=== PATIENT | male | born 1955 | race Caucasian/White ===

== ENCOUNTER 2017-04-09 19:03 | Observation (INO) | payer MEDICARE, OTHER ==
[2017-04-09] MEDS ORDERED: Sodium Chloride 0.9% 1,000 ML IV ONE (19:12)
--- NOTE | 2017-04-09 19:25 | EDM.PDOC ---
ED HPI GENERAL MEDICAL PROBLEM - General Chief Complaint: General Stated Complaint: PT HAS DIFFICULTY BREATHING AND PAIN ON RT SIDE Time Seen by Provider: 04/09/17 19:08 - History of Present Illness INITIAL COMMENTS - FREE TEXT/NARRATIVE: HISTORY AND PHYSICAL: History of present illness: Patient is a 61-year-old white male with history of hypertension presents with a concern of right-sided abdominal pain this is more upper abdominal pain and started today he denies chest pain nausea vomiting he does equivocate regarding some shortness of breath he denies drug or alcohol abuse denies trauma denies urinary symptoms denies no gallbladder ulcer or pancreatic disease Review of systems: As per history of present illness and below otherwise all systems reviewed and negative. Past medical history: As per history of present illness and as reviewed below otherwise noncontributory. Surgical history: As per history of present illness and as reviewed below otherwise noncontributory. Social history: No reported history of drug or alcohol abuse. Family history: As per history of present illness and as reviewed below otherwise noncontributory. Physical exam: HEENT: Atraumatic, normocephalic, pupils reactive, negative for conjunctival pallor or scleral icterus, mucous membranes moist, throat clear, neck supple, nontender, trachea midline. Lungs: Clear to auscultation, breath sounds equal bilaterally, chest nontender. Heart: S1S2, regular, negative for clicks, rubs, or JVD. Abdomen: Soft, protuberant nondistended, mild upper abdominal tenderness nonlocalized no rebound no guarding. Negative for masses or hepatosplenomegaly. Negative for costovertebral tenderness. Pelvis: Stable nontender. Genitourinary: Deferred. Rectal: Deferred. Extremities: Atraumatic, negative for cords or calf pain. Neurovascular unremarkable. Neuro: Awake, alert, oriented. Cranial nerves II through XII unremarkable. Cerebellum unremarkable. Motor and sensory unremarkable throughout. Exam nonfocal. Diagnostics: CBC CMP PT/INR troponin amylase lipase chest x-ray EKG CT abdomen and pelvis Therapeutics: Normal saline 1 L bolus O2 monitor Impression: #1 abdominal pain #2 hypertension Definitive disposition and diagnosis as appropriate pending reevaluation and review of above. right side rib Pain Score (Numeric/FACES): 10 - Related Data Allergies Allergy/AdvReac Type Severity Reaction Status Date / Time No Known Allergies Allergy Verified 04/09/17 19:05 Home Meds: Home Meds Aspirin [Lo-Dose Aspirin EC] 81 mg PO DAILY 04/09/17 [History] Gemfibrozil [Lopid] 600 mg PO DAILY 04/09/17 [History] Mycophenolate Mofetil 500 mg PO BID 04/09/17 [History] Nadolol [Corgard] 20 mg PO DAILY 04/09/17 [History] Sertraline [Zoloft] 200 mg PO DAILY 04/09/17 [History] Tacrolimus [Prograf] 1 mg PO BID 04/09/17 [History] buPROPion [Wellbutrin] 150 mg PO BID 04/09/17 [History] traZODone HCl [Trazodone HCl] 200 mg PO BEDTIME 04/09/17 [History] ED ROS GENERAL - Review of Systems Review Of Systems: ROS reveals no pertinent complaints other than HPI. ED EXAM, GENERAL - Physical Exam Exam: See Below (See dictation) Course - Vital Signs Last Recorded V/S: Last Vital Signs Temp 36.6 C 04/10/17 00:00 Pulse 85 04/10/17 00:00 Resp 20 04/10/17 00:00 BP 133/64 04/10/17 00:00 Pulse Ox 95 04/10/17 00:00 - Orders/Labs/Meds Orders: Active Orders 24 hr Category Date Time Status Patient Status [ADT] Stat ADT 04/09/17 20:32 Active Pulse Oximetry [RC] ASDIRECTED Care 04/09/17 19:11 Active Abdomen Pelvis wo Cont [CT] Stat Exams 04/09/17 19:12 Taken Chest 2V [CR] Stat Exams 04/09/17 19:12 Taken CULTURE BLOOD [BC] Stat Lab 04/09/17 20:40 Received CULTURE BLOOD [BC] Stat Lab 04/09/17 20:46 Received Blood Culture x2 Reflex Set [OM.PC] Stat Oth 04/09/17 20:27 Ordered Medication Orders Acetaminophen (Tylenol) 650 mg PO Q4H PRN PRN Reason: Pain (Mild 1-3)/fever Hydrocodone Bitart/Acetaminophen (Eldred 325-5 Mg) 2 tab PO Q4H PRN PRN Reason: Pain (moderate 4-6) Albuterol/Ipratropium (Duoneb 3.0-0.5 Mg/3 Ml) 3 ml NEB Q4HRRT PRN PRN Reason: Shortness Of Breath/wheezing Aspirin (Halfprin) 81 mg PO DAILY [facility] Bupropion HCl (Wellbutrin) 150 mg PO BID [facility] Enoxaparin Sodium (Lovenox) 40 mg SUBCUT DAILY [facility] Gemfibrozil (Lopid) 600 mg PO DAILY [facility] Hydromorphone HCl (Dilaudid) 0.5 mg IVPUSH Q2H PRN PRN Reason: Pain (severe 7-10) Sodium Chloride (Normal Saline) 250 mls @ 999 mls/hr IV ASDIRECTED [facility] Last Admin: 04/09/17 21:27 Dose: 999 mls/hr Ibuprofen (Motrin) 600 mg PO Q6H PRN PRN Reason: Pain (mild 1-3) Mycophenolate Mofetil (Cellcept) 500 mg PO BIDAC [facility] Nadolol (Naldol) 20 mg PO DAILY [facility] Nicotine (Habitrol) 14 mg TRDERM DAILY [facility] Ondansetron HCl (Zofran Odt) 4 mg PO Q6H PRN PRN Reason: nausea, able to take PO Ondansetron HCl (Zofran) 4 mg IVPUSH Q6H PRN PRN Reason: Nausea/Vomiting Polyethylene Glycol (Miralax) 17 gm PO DAILY PRN PRN Reason: Constipation Promethazine HCl (Phenergan) 25 mg PO Q6H PRN PRN Reason: nausea, able to take PO Sertraline HCl (Zoloft) 200 mg PO DAILY [facility] Tacrolimus (Prograf) 1 mg PO BID [facility] Temazepam (Restoril) 15 mg PO BEDTIME PRN PRN Reason: Sleep Trazodone HCl (Trazodone) 200 mg PO BEDTIME [facility] Labs: Laboratory Tests 04/09/17 04/09/17 04/09/17 Range/Units 19:30 19:30 19:30 WBC 18.84 H (4.0-11.0) K/uL RBC 5.46 (4.50-5.90) M/uL Hgb 16.2 (13.0-17.0) g/dL Hct 44.7 (38.0-50.0) % MCV 81.9 (80.0-98.0) fL MCH 29.7 (27.0-32.0) pg MCHC 36.2 (31.0-37.0) g/dL RDW Std Deviation 43.8 (28.0-62.0) fl RDW Coeff of Zara 15 (11.0-15.0) % Plt Count 166 (150-400) K/uL MPV 9.20 (7.40-12.00) fL Neut % (Auto) 85.1 H (48.0-80.0) % Lymph % (Auto) 3.9 L (16.0-40.0) % [place] % (Auto) 10.5 (0.0-15.0) % Eos % (Auto) 0.4 (0.0-7.0) % Baso % (Auto) 0.1 (0.0-1.5) % Neut # (Auto) 16.0 H (1.4-5.7) K/uL Lymph # (Auto) 0.7 (0.6-2.4) K/uL [place] # (Auto) 2.0 H (0.0-0.8) K/uL Eos # (Auto) 0.1 (0.0-0.7) K/uL Baso # (Auto) 0.0 (0.0-0.1) K/uL Nucleated RBC % 0.0 /100WBC Nucleated RBCs # 0 K/uL INR 1.21 H (0.86-1.11) Lactate (0.20-2.00) mmol/L Sodium 134 L (136-146) mmol/L Potassium 4.4 (3.5-5.1) mmol/L Chloride 101 (98-110) mmol/L Carbon Dioxide 20 L (21-31) mmol/L BUN 15 (6.0-23.0) mg/dL Creatinine 1.2 (0.6-1.5) mg/dL Est Cr Clr Drug Dosing 57.66 mL/min Estimated GFR (MDRD) > 60.0 ml/min Glucose 121 H (60-110) mg/dL Calcium 9.5 (8.8-10.8) mg/dL Total Bilirubin 1.3 (0.1-1.5) mg/dL AST 34 (5-40) IU/L ALT 20 (8-54) IU/L Alkaline Phosphatase 143 (40-150) Troponin I (0.0-0.29) NG/ML Total Protein 8.3 H (6.0-8.0) g/dL Albumin 3.7 (3.5-5.0) g/dL Globulin 4.6 H (2.0-3.5) g/dL Albumin/Globulin Ratio 0.8 L (1.3-2.8) Amylase 25 (10-90) U/L Lipase 15 (7-80) U/L Urine Color Urine Appearance Urine pH (5.0-8.0) Ur Specific [place] (1.001-1.035) Urine Protein (NEGATIVE) mg/dL Urine Glucose (UA) (NEGATIVE) mg/dL Urine Ketones (NEGATIVE) mg/dL Urine Occult Blood (NEGATIVE) Urine Nitrite (NEGATIVE) Urine Bilirubin (NEGATIVE) Urine Ictotest Urine Urobilinogen (<2.0) EU/dL Ur Leukocyte Esterase (NEGATIVE) Urine RBC (0-2/HPF) Urine WBC (0-5/HPF) Ur Epithelial Cells (NONE-FEW) Urine Bacteria (NEGATIVE) Hyaline Casts (0-2/LPF) Urine Mucus (NONE-MOD) Urine Opiates Screen (NEGATIVE) Ur Oxycodone Screen (NEGATIVE) Urine Methadone Screen (NEGATIVE) Ur Barbiturates Screen (NEGATIVE) Ur Phencyclidine Scrn (NEGATIVE) Ur Amphetamine Screen (NEGATIVE) U Methamphetamines Scrn (NEGATIVE) U Benzodiazepines Scrn (NEGATIVE) U Cocaine Metab Screen (NEGATIVE) U Marijuana (THC) Screen (NEGATIVE) 04/09/17 04/09/17 04/09/17 Range/Units 19:30 19:30 20:05 WBC (4.0-11.0) K/uL RBC (4.50-5.90) M/uL Hgb (13.0-17.0) g/dL Hct (38.0-50.0) % MCV (80.0-98.0) fL MCH (27.0-32.0) pg MCHC (31.0-37.0) g/dL RDW Std Deviation (28.0-62.0) fl RDW Coeff of Zara (11.0-15.0) % Plt Count (150-400) K/uL MPV (7.40-12.00) fL Neut % (Auto) (48.0-80.0) % Lymph % (Auto) (16.0-40.0) % [place] % (Auto) (0.0-15.0) % Eos % (Auto) (0.0-7.0) % Baso % (Auto) (0.0-1.5) % Neut # (Auto) (1.4-5.7) K/uL Lymph # (Auto) (0.6-2.4) K/uL [place] # (Auto) (0.0-0.8) K/uL Eos # (Auto) (0.0-0.7) K/uL Baso # (Auto) (0.0-0.1) K/uL Nucleated RBC % /100WBC Nucleated RBCs # K/uL INR (0.86-1.11) Lactate 1.3 (0.20-2.00) mmol/L Sodium (136-146) mmol/L Potassium (3.5-5.1) mmol/L Chloride (98-110) mmol/L Carbon Dioxide (21-31) mmol/L BUN (6.0-23.0) mg/dL Creatinine (0.6-1.5) mg/dL Est Cr Clr Drug Dosing mL/min Estimated GFR (MDRD) ml/min Glucose (60-110) mg/dL Calcium (8.8-10.8) mg/dL Total Bilirubin (0.1-1.5) mg/dL AST (5-40) IU/L ALT (8-54) IU/L Alkaline Phosphatase (40-150) Troponin I < 0.10 (0.0-0.29) NG/ML Total Protein (6.0-8.0) g/dL Albumin (3.5-5.0) g/dL Globulin (2.0-3.5) g/dL Albumin/Globulin Ratio (1.3-2.8) Amylase (10-90) U/L Lipase (7-80) U/L Urine Color DARK YELLOW Urine Appearance CLEAR Urine pH 6.0 (5.0-8.0) Ur Specific [place] 1.025 (1.001-1.035) Urine Protein 100 (NEGATIVE) mg/dL Urine Glucose (UA) 100 H (NEGATIVE) mg/dL Urine Ketones NEGATIVE (NEGATIVE) mg/dL Urine Occult Blood TRACE-INTACT (NEGATIVE) Urine Nitrite NEGATIVE (NEGATIVE) Urine Bilirubin MODERATE H (NEGATIVE) Urine Ictotest NEGATIVE Urine Urobilinogen >=8.0 H (<2.0) EU/dL Ur Leukocyte Esterase NEGATIVE (NEGATIVE) Urine RBC 0-2 (0-2/HPF) Urine WBC 4-6 (0-5/HPF) Ur Epithelial Cells MODERATE (NONE-FEW) Urine Bacteria FEW (NEGATIVE) Hyaline Casts 5-8 (0-2/LPF) Urine Mucus LIGHT (NONE-MOD) Urine Opiates Screen (NEGATIVE) Ur Oxycodone Screen (NEGATIVE) Urine Methadone Screen (NEGATIVE) Ur Barbiturates Screen (NEGATIVE) Ur Phencyclidine Scrn (NEGATIVE) Ur Amphetamine Screen (NEGATIVE) U Methamphetamines Scrn (NEGATIVE) U Benzodiazepines Scrn (NEGATIVE) U Cocaine Metab Screen (NEGATIVE) U Marijuana (THC) Screen (NEGATIVE) 04/09/17 Range/Units 20:05 WBC (4.0-11.0) K/uL RBC (4.50-5.90) M/uL Hgb (13.0-17.0) g/dL Hct (38.0-50.0) % MCV (80.0-98.0) fL MCH (27.0-32.0) pg MCHC (31.0-37.0) g/dL RDW Std Deviation (28.0-62.0) fl RDW Coeff of Zara (11.0-15.0) % Plt Count (150-400) K/uL MPV (7.40-12.00) fL Neut % (Auto) (48.0-80.0) % Lymph % (Auto) (16.0-40.0) % [place] % (Auto) (0.0-15.0) % Eos % (Auto) (0.0-7.0) % Baso % (Auto) (0.0-1.5) % Neut # (Auto) (1.4-5.7) K/uL Lymph # (Auto) (0.6-2.4) K/uL [place] # (Auto) (0.0-0.8) K/uL Eos # (Auto) (0.0-0.7) K/uL Baso # (Auto) (0.0-0.1) K/uL Nucleated RBC % /100WBC Nucleated RBCs # K/uL INR (0.86-1.11) Lactate (0.20-2.00) mmol/L Sodium (136-146) mmol/L Potassium (3.5-5.1) mmol/L Chloride (98-110) mmol/L Carbon Dioxide (21-31) mmol/L BUN (6.0-23.0) mg/dL Creatinine (0.6-1.5) mg/dL Est Cr Clr Drug Dosing mL/min Estimated GFR (MDRD) ml/min Glucose (60-110) mg/dL Calcium (8.8-10.8) mg/dL Total Bilirubin (0.1-1.5) mg/dL AST (5-40) IU/L ALT (8-54) IU/L Alkaline Phosphatase (40-150) Troponin I (0.0-0.29) NG/ML Total Protein (6.0-8.0) g/dL Albumin (3.5-5.0) g/dL Globulin (2.0-3.5) g/dL Albumin/Globulin Ratio (1.3-2.8) Amylase (10-90) U/L Lipase (7-80) U/L Urine Color Urine Appearance Urine pH (5.0-8.0) Ur Specific [place] (1.001-1.035) Urine Protein (NEGATIVE) mg/dL Urine Glucose (UA) (NEGATIVE) mg/dL Urine Ketones (NEGATIVE) mg/dL Urine Occult Blood (NEGATIVE) Urine Nitrite (NEGATIVE) Urine Bilirubin (NEGATIVE) Urine Ictotest Urine Urobilinogen (<2.0) EU/dL Ur Leukocyte Esterase (NEGATIVE) Urine RBC (0-2/HPF) Urine WBC (0-5/HPF) Ur Epithelial Cells (NONE-FEW) Urine Bacteria (NEGATIVE) Hyaline Casts (0-2/LPF) Urine Mucus (NONE-MOD) Urine Opiates Screen NEGATIVE (NEGATIVE) Ur Oxycodone Screen NEGATIVE (NEGATIVE) Urine Methadone Screen NEGATIVE (NEGATIVE) Ur Barbiturates Screen NEGATIVE (NEGATIVE) Ur Phencyclidine Scrn NEGATIVE (NEGATIVE) Ur Amphetamine Screen NEGATIVE (NEGATIVE) U Methamphetamines Scrn NEGATIVE (NEGATIVE) U Benzodiazepines Scrn NEGATIVE (NEGATIVE) U Cocaine Metab Screen NEGATIVE (NEGATIVE) U Marijuana (THC) Screen NEGATIVE (NEGATIVE) Meds: Medications Generic Name Dose Route Start Last Admin Trade Name Freq PRN Reason Stop Dose Admin Acetaminophen 650 mg 06/05/17 22:03 Tylenol PO Q4H PRN Pain (Mild 1-3)/fever Hydrocodone Bitart/Acetaminophen 2 tab 04/09/17 22:03 Eldred 325-5 Mg PO Q4H PRN Pain (moderate 4-6) Albuterol/Ipratropium 3 ml 04/09/17 22:03 Duoneb 3.0-0.5 Mg/3 Ml NEB Q4HRRT PRN Shortness Of Breath/wheezing Aspirin 81 mg 04/10/17 09:00 Halfprin PO DAILY [facility] Bupropion HCl 150 mg 04/10/17 09:00 Wellbutrin PO BID [facility] Enoxaparin Sodium 40 mg 04/10/17 09:00 Lovenox SUBCUT DAILY [facility] Gemfibrozil 600 mg 04/10/17 09:00 Lopid PO DAILY [facility] Hydromorphone HCl 0.5 mg 04/09/17 22:03 Dilaudid IVPUSH Q2H PRN Pain (severe 7-10) Sodium Chloride 250 mls @ 999 mls/hr 04/09/17 21:30 04/09/17 21:27 Normal Saline IV 999 mls/hr ASDIRECTED [facility] Administration Ibuprofen 600 mg 04/09/17 22:03 Motrin PO Q6H PRN Pain (mild 1-3) Mycophenolate Mofetil 500 mg 04/10/17 07:30 Cellcept PO BIDAC [facility] Nadolol 20 mg 04/10/17 09:00 Naldol PO DAILY [facility] Nicotine 14 mg 04/10/17 09:00 Habitrol TRDERM DAILY [facility] Ondansetron HCl 4 mg 04/09/17 22:03 Zofran Odt PO Q6H PRN nausea, able to take PO Ondansetron HCl 4 mg 04/09/17 22:03 Zofran IVPUSH Q6H PRN Nausea/Vomiting Polyethylene Glycol 17 gm 04/09/17 22:03 Miralax PO DAILY PRN Constipation Promethazine HCl 25 mg 04/09/17 22:03 Phenergan PO Q6H PRN nausea, able to take PO Sertraline HCl 200 mg 04/10/17 09:00 Zoloft PO DAILY [facility] Tacrolimus 1 mg 04/10/17 09:00 Prograf PO BID [facility] Temazepam 15 mg 04/09/17 22:03 Restoril PO BEDTIME PRN Sleep Trazodone HCl 200 mg 04/10/17 21:00 Trazodone PO BEDTIME [facility] Discontinued Medications Generic Name Dose Route Start Last Admin Trade Name Pooja PRN Reason Stop Dose Admin Hydromorphone HCl 1 mg 04/09/17 20:39 04/09/17 20:49 Dilaudid IVPUSH 04/09/17 20:40 1 mg ONETIME ONE Administration Sodium Chloride 1,000 mls @ 999 mls/hr 04/09/17 19:12 04/09/17 19:30 Normal Saline IV 04/09/17 20:12 999 mls/hr STAT ONE Administration Levofloxacin/Dextrose 750 mg/ 150 mls @ 100 mls/hr 04/09/17 20:27 04/09/17 20 :50 Premix IV 04/09/17 21:56 100 mls/hr ONETIME ONE Administration Iopamidol 50 ml 04/09/17 22:33 04/09/17 22:37 Isovue Multipack-370 (76%) IVPUSH 04/09/17 22:34 Not Given ONETIME STA Ketorolac Tromethamine 15 mg 04/09/17 19:37 04/09/17 20:02 Toradol IVPUSH 04/09/17 19:38 15 mg ONETIME ONE Administration Ondansetron HCl 4 mg 04/09/17 21:13 04/09/17 21:23 Zofran IVPUSH 04/09/17 21:14 4 mg ONETIME ONE Administration Departure - Departure Time of Disposition: 21:00 Disposition: Refer to Observation Condition: good Clinical Impression: Lung mass, Pneumonia - Discharge Information - My Orders Last 24 Hours: My Active Orders 04/09/17 19:11 Pulse Oximetry [RC] ASDIRECTED 04/09/17 19:12 Abdomen Pelvis wo Cont [CT] Stat Chest 2V [CR] Stat 04/09/17 20:27 Blood Culture x2 Reflex Set [OM.PC] Stat 04/09/17 20:32 Patient Status [ADT] Stat 04/09/17 20:40 CULTURE BLOOD [BC] Stat 04/09/17 20:46 CULTURE BLOOD [BC] Stat - Assessment/Plan Last 24 Hours: My Active Orders 04/09/17 19:11 Pulse Oximetry [RC] ASDIRECTED 04/09/17 19:12 Abdomen Pelvis wo Cont [CT] Stat Chest 2V [CR] Stat 04/09/17 20:27 Blood Culture x2 Reflex Set [OM.PC] Stat 04/09/17 20:32 Patient Status [ADT] Stat 04/09/17 20:40 CULTURE BLOOD [BC] Stat 04/09/17 20:46 CULTURE BLOOD [BC] Stat
[2017-04-09] MEDS ORDERED: Ketorolac 30 MG/ML SDV IVPUSH ONE (19:37)
[2017-04-09 20:01] LABS: CHLORIDE,CL 101 mmol/L (98-110); SODIUM,NA 134 mmol/L (136-146)
[2017-04-09] MEDS ORDERED: Levofloxacin/Dextrose 5%-Water 750 MG in Premix Bag 1 BAG IV ONE (20:27)
[2017-04-09] MEDS ORDERED: HYDROmorphone 1 MG/ML Syringe IVPUSH ONE (20:39)
[2017-04-09] MEDS ORDERED: Ondansetron 4 MG/2 ML SDV IVPUSH ONE (21:13)
[2017-04-09] MEDS ORDERED: Sodium Chloride 0.9% 250 ML IV SCH (21:30)
[2017-04-09] MEDS ORDERED: Temazepam 15 MG Cap PO PRN (22:03)
[2017-04-09] MEDS ORDERED: Ondansetron 4 MG Tab.DIS PO PRN (22:03)
[2017-04-09] MEDS ORDERED: Ibuprofen 600 MG Tab PO PRN (22:03)
[2017-04-09] MEDS ORDERED: Albuterol/Ipratropium 3.0-0.5 MG/3 ML Neb Soln NEB PRN (22:03)
[2017-04-09] MEDS ORDERED: Acetaminophen 325 MG Tab PO PRN (22:03)
[2017-04-09] MEDS ORDERED: Promethazine 25 MG Tab PO PRN (22:03)
[2017-04-09] MEDS ORDERED: Ondansetron 4 MG/2 ML SDV IVPUSH PRN (22:03)
[2017-04-09] MEDS ORDERED: Polyethylene Glycol 3350 Powder 17 GM Packet PO PRN (22:03)
--- NOTE | 2017-04-09 22:18 | PCM.HP ---
H&P History of Present Illness - General Date of Service: 04/09/17 Admit Problem/Dx: right sided chest and upper abdominal pain Source of Information: Patient History Limitations: Reports: No Limitations - History of Present Illness Initial Comments - Free Text/Narative: 61 M with several days of pleuritic right upper quadrant and lower anterior chest pain. No trauma recalled. Not an abrupt onset. Occas cough but not new. No flank or back pain. No dyspnea more than his baseline. Never had this pain before. Denies any sxs in this area before about 2-3 days ago. Denies wt changes, night sweats, swollen LN's, hemoptysis, GI or sxs (except occasional loose stools) OTW ROS negative right side rib Pain Score (Numeric/FACES): 10 - Related Data Allergies/Adverse Reactions: Allergies Allergy/AdvReac Type Severity Reaction Status Date / Time No Known Allergies Allergy Verified 04/09/17 19:05 Home Medications: Home Meds Aspirin [Lo-Dose Aspirin EC] 81 mg PO DAILY 04/09/17 [History] Gemfibrozil [Lopid] 600 mg PO DAILY 04/09/17 [History] Nadolol [Corgard] 20 mg PO DAILY 04/09/17 [History] Sertraline [Zoloft] 200 mg PO DAILY 04/09/17 [History] Tacrolimus [Prograf] 1 mg PO BID 04/09/17 [History] buPROPion [Wellbutrin] 100 mg PO BID 04/09/17 [History] traZODone HCl [Trazodone HCl] 200 mg PO 04/09/17 [History] Past Medical History HEENT History: Reports: Allergic Rhinitis Cardiovascular History: Reports: Hypertension Respiratory History: Reports: None, Asthma Gastrointestinal History: Reports: None, Cirrhosis (HEP C) Genitourinary History: Reports: None Musculoskeletal History: Reports: None Neurological History: Reports: None Psychiatric History: Reports: Anxiety, Depression Endocrine/Metabolic History: Reports: None Hematologic History: Reports: Anemia Oncologic (Cancer) History: Reports: None Dermatologic History: Reports: None - Infectious Disease History Infectious Disease History: Reports: Chicken Pox, Measles - Past Surgical History GI Surgical History: Reports: Cholecystectomy, Other (See Below) Other GI Surgeries/Procedures: 2009 liver transplant Male Surgical History: Reports: None Social & Family History - Family History Family Medical History: Noncontributory - Tobacco Use Smoking Status *Q: Current Every Day Smoker Years of Tobacco use: 25 Packs/Tins Daily: 0.5 - Alcohol Use Alcohol Use History: Yes - Recreational Drug Use Recreational Drug Use: No - Sexual History Sexual History: Reports: None - Living Situation & Occupation Living situation: Reports: Single Occupation: Retired H&P Review of Systems - Review of Systems: Review Of Systems: ROS reveals no pertinent complaints other than HPI. Exam - Exam Exam: See Below - Vital Signs Vital Signs: Last Vital Signs Temp 37.2 C 04/09/17 20:58 Pulse 85 04/09/17 20:58 Resp 20 04/09/17 20:58 BP 168/101 H 04/09/17 20:58 Pulse Ox 94 L 04/09/17 20:58 Weight: 86.183 kg - Exam Quality Assessment: Supplemental Oxygen General: Alert, Oriented, Cooperative. No: Mild Distress HEENT: Conjunctiva Clear, EOMI Neck: Supple, Trachea Midline, +2 Carotid Pulse wo Bruit. No: Lymphadenopathy, Carotid Bruit, JVD Lungs: Decreased Breath Sounds, Crackles. No: Rub, Stridor, Wheezing Cardiovascular: Regular Rate, Regular Rhythm, Normal S1, Normal S2, Other ( right anterior chest pain) Abdomen: Normal Bowel Sounds, Soft, Pelvis Stable. No: Guarding, Rigidity, Rebound, Tenderness Back Exam: Normal Inspection, Full Range of Motion. No: CVA Tenderness (L), CVA Tenderness (R) Extremities: Normal Inspection. No: Clubbing, Cyanosis Skin: Warm, Dry, Intact Neurological: Cranial Nerves Intact, Reflexes Equal Bilateral, Strength Equal Bilateral, Normal Speech, Normal Tone Neuro Extensive - Mental Status: Alert, Oriented x3, Normal Mood/Affect, Normal Cognition Neuro Extensive - Motor, Sensory, Reflexes: CN II-XII Intact, Normal Gait, Normal Reflexes Psychiatric: Alert, Normal Affect, Normal Mood - Patient Data Result Diagrams: 04/09/17 19:30 04/09/17 19:30 Imaging Impressions last 24 hrs: CT Abd/Pelvis (unofficial) large RML spiculated mass CXR: Same EKG INTERPRETATION Rhythm: NSR [place]: normal *Q Meaningful Use (ADM) - VTE *Q VTE Criteria *Q: - Stroke *Q Stroke Criteria *Q: - AMI *Q AMI Criteria *Q: Problem List Initiated/Reviewed/Updated: Yes Orders Last 24hrs: Active Orders 24 hr Category Date Time Status Patient Status [ADT] Routine ADT 04/09/17 22:03 Ordered Ambulate [RC] PER UNIT ROUTINE Care 04/09/17 22:05 Ordered Antiembolic Devices [RC] PER UNIT ROUTINE Care 04/09/17 22:08 Ordered Cardiac Monitoring [RC] CONTINUOUS Care 04/09/17 22:05 Ordered Oxygen Therapy [RC] PRN Care 04/09/17 22:03 Ordered Pulse Oximetry [RC] CONTINUOUS Care 04/09/17 22:05 Ordered RT Aerosol Therapy [RC] ASDIRECTED Care 04/09/17 22:08 Ordered Up ad Qi [RC] ASDIRECTED Care 04/09/17 22:03 Ordered VTE/DVT Education [RC] PER UNIT ROUTINE Care 04/09/17 22:03 Ordered Vital Signs [RC] Q4H Care 04/09/17 22:03 Ordered Regular Diet [DIET] Diet 04/10/17 Breakfast Ordered C-REACTIVE PROTEIN [CHEM] AM Lab 04/10/17 05:11 Ordered CBC WITH AUTO DIFF [HEME] AM Lab 04/10/17 05:11 Ordered COMPREHENSIVE METABOLIC PN,CMP [CHEM] AM Lab 04/10/17 05:11 Ordered MAGNESIUM [CHEM] AM Lab 04/10/17 05:11 Ordered PHOSPHORUS [CHEM] AM Lab 04/10/17 05:11 Ordered Acetaminophen [Tylenol] Med 04/09/17 22:03 Ordered 650 mg PO Q4H PRN Acetaminophen/HYDROcodone [Cecil 325-5 MG] Med 04/09/17 22:03 Ordered 2 tab PO Q4H PRN Albuterol/Ipratropium [DuoNeb 3.0-0.5 MG/3 ML] Med 04/09/17 22:03 Ordered 3 ml NEB Q4HRRT PRN Aspirin [Halfprin] Med 04/10/17 09:00 Ordered 81 mg PO DAILY Enoxaparin [Lovenox] Med 04/10/17 09:00 Ordered 40 mg SUBCUT DAILY HYDROmorphone [Dilaudid] Med 04/09/17 22:03 Ordered 0.5 mg IVPUSH Q2H PRN Ibuprofen [Motrin] Med 04/09/17 22:03 Ordered 600 mg PO Q6H PRN Nadolol [Corgard] Med 04/10/17 09:00 Ordered 20 mg PO DAILY Nicotine [Habitrol] Med 04/10/17 09:00 Ordered 14 mg TRDERM DAILY Ondansetron [Zofran ODT] Med 04/09/17 22:03 Ordered 4 mg PO Q6H PRN Ondansetron [Zofran] Med 04/09/17 22:03 Ordered 4 mg IVPUSH Q6H PRN Polyethylene Glycol 3350 [MiraLAX] Med 04/09/17 22:03 Ordered 17 gm PO DAILY PRN Promethazine [Phenergan] Med 04/09/17 22:03 Ordered 25 mg PO Q6H PRN Sertraline [Zoloft] Med 04/10/17 09:00 Ordered 200 mg PO DAILY Sodium Chloride 0.9% [Normal Saline] 250 ml Med 04/09/17 21:30 Active IV ASDIRECTED Tacrolimus [Prograf] Med 04/10/17 09:00 Ordered 1 mg PO BID Temazepam [Restoril] Med 04/09/17 22:03 Ordered 15 mg PO BEDTIME PRN buPROPion [Wellbutrin] Med 04/10/17 09:00 Unverified DOSE UNIT RTE FREQ traZODone HCl [Trazodone HCl] Med 04/09/17 22:15 Unverified DOSE UNIT RTE FREQ Sequential Compression Device [OM.PC] Per Unit Routine Oth 04/09/17 22:05 Ordered Resuscitation Status Routine Resus Stat 04/09/17 22:03 Ordered Medication Orders Acetaminophen (Tylenol) 650 mg PO Q4H PRN PRN Reason: Pain (Mild 1-3)/fever Hydrocodone Bitart/Acetaminophen (Cecil 325-5 Mg) 2 tab PO Q4H PRN PRN Reason: Pain (moderate 4-6) Albuterol/Ipratropium (Duoneb 3.0-0.5 Mg/3 Ml) 3 ml NEB Q4HRRT PRN PRN Reason: Shortness Of Breath/wheezing Enoxaparin Sodium (Lovenox) 40 mg SUBCUT DAILY [facility] Hydromorphone HCl (Dilaudid) 0.5 mg IVPUSH Q2H PRN PRN Reason: Pain (severe 7-10) Sodium Chloride (Normal Saline) 250 mls @ 999 mls/hr IV ASDIRECTED [facility]ANO Last Admin: 04/09/17 21:27 Dose: 999 mls/hr Ibuprofen (Motrin) 600 mg PO Q6H PRN PRN Reason: Pain (mild 1-3) Nicotine (Habitrol) 14 mg TRDERM DAILY [facility] Ondansetron HCl (Zofran Odt) 4 mg PO Q6H PRN PRN Reason: nausea, able to take PO Ondansetron HCl (Zofran) 4 mg IVPUSH Q6H PRN PRN Reason: Nausea/Vomiting Polyethylene Glycol (Miralax) 17 gm PO DAILY PRN PRN Reason: Constipation Promethazine HCl (Phenergan) 25 mg PO Q6H PRN PRN Reason: nausea, able to take PO Temazepam (Restoril) 15 mg PO BEDTIME PRN PRN Reason: Sleep Assessment/Plan Comment:: ASSESSMENT: Chest pain: not an mi. Prob related to mass; doubt PE...not really SOB and sats ok. DDimer not ordered as it most certainly will be elevated. 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
[2017-04-09] MEDS ORDERED: Iopamidol 755 MG/ML 500 ML Multipack Bottle IVPUSH STA (22:33)
[2017-04-10] MEDS: Acetaminophen/HYDROcodone 325-5 MG Tab PO PRN ×2 (03:52→11:00)
[2017-04-10 05:29] LABS: CHLORIDE,CL 107 mmol/L (98-110); SODIUM,NA 140 mmol/L (136-146)
[2017-04-10] MEDS: Mycophenolate Mofetil 250 MG Cap PO SCH ×3 (07:54→22:10)
[2017-04-10] MEDS: HYDROmorphone 1 MG/ML Syringe IVPUSH PRN ×3 (08:14→20:52)
[2017-04-10] MEDS: Enoxaparin 40 MG/0.4 ML Syringe SUBCUT SCH (09:56)
[2017-04-10] MEDS: Nicotine 14 MG/24 Hr Patch TRDERM SCH (09:57)
[2017-04-10] MEDS: buPROPion 100 MG Tab PO SCH ×2 (09:57→22:16)
[2017-04-10] MEDS: Gemfibrozil 600 MG Tab PO SCH (09:57)
[2017-04-10] MEDS: Tacrolimus 1 MG Cap PO SCH ×2 (09:57→22:11)
[2017-04-10] MEDS: Aspirin 81 MG Tab.EC PO SCH (09:57)
[2017-04-10] MEDS: Sertraline 100 MG Tab PO SCH (09:58)
[2017-04-10] MEDS ORDERED: Azithromycin 500 MG in Sodium Chloride 0.9% 250 ML IV ONE (10:12)
--- NOTE | 2017-04-10 10:13 | CR ---
EXAM DATE: 04/09/17 PATIENT'S AGE: 61 Patient: SKYLAR AGUIRRE Facility: [place], [place] Site . Site : 1955 Study: XRay Chest [id number]/5/2017 7:46:45 PM Ordering Physician: Doctor Roberto Final Report: INDICATION: RT side rib pain, sob, no known injury TECHNIQUE: Chest 2 views COMPARISON: None FINDINGS: Cardiovascular and mediastinum: Heart size and vasculature are normal in caliber and appearance. Mediastinum is within normal limits. Lungs and pleural spaces: Masslike consolidation within the right middle lobe. No sign of pleural effusion. No pneumothorax. Bones and soft tissues: Degenerative changes. IMPRESSION: Masslike consolidation within the right middle lobe. Please correlate for signs of pneumonia. Other etiologies cannot be excluded. Dictated by Cedrick Walker MD @ 04/09/2017 7:56:36 PM Dictated by: Cedrick Walker MD @ 04/09/2017 19:56:44 (Electronic Signature) Report Signed by Proxy. [facility] HOSPITALMathieu
--- NOTE | 2017-04-10 10:14 | CT ---
EXAM DATE: 04/09/17 PATIENT'S AGE: 61 Patient: SKYLAR AGUIRRE Facility: [place], [place] Site . Site : 1955 Study: CT Abdomen/Pelvis [id number]/5/2017 7:54:44 PM Ordering Physician: Doctor Roberto Final Report: HISTORY: Right-sided rib pain and cough. TECHNIQUE: The abdomen and pelvis were scanned using helical technique at 3 mm intervals without IV contrast. Sagittal and coronal reconstructions were performed. COMPARISON: None. FINDINGS: Lung bases: A 4.5 x 3.6 cm spiculated mass is seen in the posterior aspect right lower lobe on image 6 with adjacent nodularity, ground-glass density and posterior atelectasis. Reticulonodular opacities are seen within both lower lobes. The heart is normal in size. Liver and gallbladder: Tiny foci of calcification are seen in the liver compatible with old granulomatous disease. The liver is homogeneous. Gallbladder is absent. Spleen, pancreas and adrenal glands: The spleen is enlarged measuring 17.3 cm in length. The pancreatic parenchyma is homogeneous. Adrenal glands are normal. Kidneys and bladder: No calcified urolithiasis or hydronephrosis is seen. Perinephric fat stranding is present. No ureteral stones are seen. The bladder is within normal limits. Retroperitoneum and lymph nodes: There is calcification wall of the aorta. No aneurysm. Small periaortic lymph nodes are present. No pathologic fracture is identified. GI tract: Stomach is within normal limits. No dilated small bowel loops are seen. The appendix is normal. There is some stool and gas seen throughout the colon. There is no diverticulitis. There is no free air in the abdomen. There is no free fluid the pelvis. Abdominal wall: There is diastasis of the rectus abdominis musculature. There is scattered wide mouth small fat containing ventral hernias. There is no incarceration or bowel obstruction. Osseous structures: There degenerative changes within the facets of L5-S1. No suspicious lytic or blastic bone lesions are seen. IMPRESSION: 1. 4.5 cm spiculated opacity in the right middle lobe with surrounding nodularity, ground-glass infiltrate and posterior atelectasis. This most likely represents a primary lung cancer rather than a round pneumonia. Clinical correlation is recommended for signs of pneumonia. If there is no clinical signs of pneumonia, consider biopsy. 2. Reticulonodular opacities in lung bases. This suggests an infectious or inflammatory process. 3. Splenomegaly. 4. No pathologic adenopathy. 5. Prior cholecystectomy. Dictated by Morena Wyatt MD @ 04/09/2017 8:15:45 PM Dictated by: Morena Wyatt MD @ 04/09/2017 20:16:05 (Electronic Signature) Report Signed by Proxy. DENISE
--- NOTE | 2017-04-10 10:16 | CT ---
EXAM DATE: 04/09/17 PATIENT'S AGE: 61 Patient: SKYLAR AGUIRRE Facility: [place], [place] Site . Site : 1955 Study: CT Chest [id number]/6/2017 7:52:31 AM Ordering Physician: Teofilo Centeno Final Report: Indication: Mass seen in the lungs on CT abdomen pelvis 04/09/2017. CT chest to further evaluate. Technique: CT chest with IV contrast. Impression: CT abdomen and pelvis 04/09/2017. Findings: Stable moderately enlarged spleen which is incompletely included on this exam. Cholecystectomy. Benign calcifications in the upper liver along the IVC and elsewhere in the liver parenchyma. The moderately large amount of dense masslike consolidation which is low in density involving the right middle lobe. This masslike opacity is primarily wedge-shaped but also is surrounded by a nodular and ground-glass opacity. Findings are consistent with a pneumonia. Underlying this mass or neoplasm in this region cannot be excluded at present time and thus followup imaging is recommended with CT and/or chest x-ray to ensure this completely resolves without residual mass. Patchy left prominent infiltrate and atelectasis in the mid and lower lungs varies from dense to ground-glass and nodular. Findings likely related to additional areas of patchy infectious or inflammatory opacity consistent with bilateral pneumonitis/ bronchiolitis. Mucous plugging and bronchial wall thickening in the mid and lower lungs also. Minimal superimposed fibrosis in the lungs. Small nodule along the left major fissure benign. Minimal fluid and stranding about both kidneys. Small lymph nodes in the upper abdomen. Trace amount of pleural fluid in the lower most right chest. Fat containing outpouching left mid anterior lateral abdominal wall stable. Small to upper limits of normal lymph nodes in the subcarinal and hilar regions of the chest. Remainder negative. Impression: 1. Moderately large amount of masslike opacity and dense consolidation in the right middle lobe with surrounding nodularity and ground-glass opacity is most consistent with an acute pneumonia with patchy additional areas of infiltrate and opacity which are less dense in the mid and lower lungs also likely infectious with associated mucus plugging and bronchial wall thickening. Recommend followup chest x-ray after treatment to ensure complete resolution of all of the pulmonary opacity especially the masslike opacity in the right middle lung to exclude an underlying neoplasm and/or residual mass. 2. Moderate splenomegaly. This is stable but spleen is partially visualized on this exam. 3. Cholecystectomy. Other findings as above. Please note that all CT scans at this facility use dose modulation, iterative reconstruction, and/or weight-based dosing when appropriate to reduce radiation dose to as low as reasonably achievable. Dictated by Margarito Sutton MD @ Apr 10 2017 8:06AM (Electronic Signature) Report Signed by Proxy. MTDD
--- NOTE | 2017-04-10 10:22 | PCM.PN ---
- General Info Date of Service: 04/10/17 Admission Dx/Problem (Free Text): right sided chest and upper abdominal pain Functional Status: Reports: pain controlled, tolerating diet - Review of Systems General: Reports: Fatigue. Denies: Fever, Weakness HEENT: Denies: sinus congestion Pulmonary: Reports: shortness of breath, pleuritic chest pain, cough. Denies: sputum Cardiovascular: Denies: Chest Pain, Palpitations, Edema Gastrointestinal: Denies: Abdominal pain Genitourinary: Denies: dysuria, hematuria Musculoskeletal: Denies: neck pain, leg pain Skin: Denies: cyanosis Neurological: Denies: Confusion, Dizziness Psychiatric: Denies: confusion, depression - Patient Data Vitals - most recent: Last Vital Signs Temp 36.4 C 04/10/17 08:00 Pulse 67 04/10/17 09:56 Resp 18 04/10/17 08:00 BP 133/56 L 04/10/17 09:56 Pulse Ox 92 L 04/10/17 09:00 Weight - most recent: 88.7 kg I&O - last 24 hours: Intake & Output 04/09/17 04/10/17 04/10/17 22:59 06:59 14:59 Intake Total 150 200 Output Total 3 Balance 150 197 Lab Results last 24 hrs: Laboratory Results - last 24 hr 04/10/17 04/10/17 Range/Units 04:43 04:43 WBC 11.65 H (4.0-11.0) K/uL RBC 4.79 (4.50-5.90) M/uL Hgb 13.9 (13.0-17.0) g/dL Hct 39.8 (38.0-50.0) % MCV 83.1 (80.0-98.0) fL MCH 29.0 (27.0-32.0) pg MCHC 34.9 (31.0-37.0) g/dL RDW Std Deviation 44.5 (28.0-62.0) fl RDW Coeff of Zara 15 (11.0-15.0) % Plt Count 124 L (150-400) K/uL MPV 9.50 (7.40-12.00) fL Neut % (Auto) 81.0 H (48.0-80.0) % Lymph % (Auto) 8.6 L (16.0-40.0) % Nye % (Auto) 9.4 (0.0-15.0) % Eos % (Auto) 0.9 (0.0-7.0) % Baso % (Auto) 0.1 (0.0-1.5) % Neut # (Auto) 9.4 H (1.4-5.7) K/uL Lymph # (Auto) 1.0 (0.6-2.4) K/uL Nye # (Auto) 1.1 H (0.0-0.8) K/uL Eos # (Auto) 0.1 (0.0-0.7) K/uL Baso # (Auto) 0.0 (0.0-0.1) K/uL Nucleated RBC % 0.0 /100WBC Nucleated RBCs # 0 K/uL Sodium 140 (136-146) mmol/L Potassium 3.5 (3.5-5.1) mmol/L Chloride 107 (98-110) mmol/L Carbon Dioxide 22 (21-31) mmol/L BUN 18 (6.0-23.0) mg/dL Creatinine 1.0 (0.6-1.5) mg/dL Est Cr Clr Drug Dosing 69.08 mL/min Estimated GFR (MDRD) > 60.0 ml/min Glucose 103 (60-110) mg/dL Calcium 8.4 L (8.8-10.8) mg/dL Phosphorus 3.6 (2.4-4.7) mg/dL Magnesium 1.6 (1.5-2.3) mEq/L Total Bilirubin 0.9 (0.1-1.5) mg/dL AST 11 (5-40) IU/L ALT 15 (8-54) IU/L Alkaline Phosphatase 118 (40-150) C-Reactive Protein 18.62 H (0.0-0.5) mg/dL Total Protein 5.6 L (6.0-8.0) g/dL Albumin 3.3 L (3.5-5.0) g/dL Globulin 2.3 (2.0-3.5) g/dL Albumin/Globulin Ratio 1.4 (1.3-2.8) Med Orders - Current: Current Medications Acetaminophen (Tylenol) 650 mg PO Q4H PRN PRN Reason: Pain (Mild 1-3)/fever Hydrocodone Bitart/Acetaminophen ([place] 325-5 Mg) 2 tab PO Q4H PRN PRN Reason: Pain (moderate 4-6) Last Admin: 04/10/17 03:52 Dose: 2 tab Albuterol/Ipratropium (Duoneb 3.0-0.5 Mg/3 Ml) 3 ml NEB Q4HRRT PRN PRN Reason: Shortness Of Breath/wheezing Aspirin (Halfprin) 81 mg PO DAILY [facility] Last Admin: 04/10/17 09:57 Dose: 81 mg Bupropion HCl (Wellbutrin) 150 mg PO BID [facility] Last Admin: 04/10/17 09:57 Dose: 150 mg Enoxaparin Sodium (Lovenox) 40 mg SUBCUT DAILY [facility] Last Admin: 04/10/17 09:56 Dose: Not Given Gemfibrozil (Lopid) 600 mg PO DAILY [facility] Last Admin: 04/10/17 09:57 Dose: 600 mg Hydromorphone HCl (Dilaudid) 0.5 mg IVPUSH Q2H PRN PRN Reason: Pain (severe 7-10) Last Admin: 04/10/17 08:14 Dose: 0.5 mg Sodium Chloride (Normal Saline) 250 mls @ 999 mls/hr IV ASDIRECTED [facility] Last Admin: 04/09/17 21:27 Dose: 999 mls/hr Ibuprofen (Motrin) 600 mg PO Q6H PRN PRN Reason: Pain (mild 1-3) Mycophenolate Mofetil (Cellcept) 500 mg PO 1000,2200 [facility] Nadolol (Naldol) 20 mg PO 2200 [facility] Nicotine (Habitrol) 14 mg TRDERM DAILY [facility] Last Admin: 04/10/17 09:57 Dose: Not Given Ondansetron HCl (Zofran Odt) 4 mg PO Q6H PRN PRN Reason: nausea, able to take PO Ondansetron HCl (Zofran) 4 mg IVPUSH Q6H PRN PRN Reason: Nausea/Vomiting Polyethylene Glycol (Miralax) 17 gm PO DAILY PRN PRN Reason: Constipation Promethazine HCl (Phenergan) 25 mg PO Q6H PRN PRN Reason: nausea, able to take PO Sertraline HCl (Zoloft) 200 mg PO DAILY [facility] Last Admin: 04/10/17 09:58 Dose: 200 mg Tacrolimus (Prograf) 1 mg PO BID [facility] Last Admin: 04/10/17 09:57 Dose: 1 mg Temazepam (Restoril) 15 mg PO BEDTIME PRN PRN Reason: Sleep Trazodone HCl (Trazodone) 200 mg PO BEDTIME [facility] Discontinued Medications Hydromorphone HCl (Dilaudid) 1 mg IVPUSH ONETIME ONE Stop: 04/09/17 20:40 Last Admin: 04/09/17 20:49 Dose: 1 mg Sodium Chloride (Normal Saline) 1,000 mls @ 999 mls/hr IV STAT ONE Stop: 04/09/17 20:12 Last Admin: 04/09/17 19:30 Dose: 999 mls/hr Levofloxacin/Dextrose 750 mg/ (Premix) 150 mls @ 100 mls/hr IV ONETIME ONE Stop: 04/09/17 21:56 Last Admin: 04/09/17 20:50 Dose: 100 mls/hr Iopamidol (Isovue Multipack-370 (76%)) 50 ml IVPUSH ONETIME STA Stop: 04/09/17 22:34 Last Admin: 04/09/17 22:37 Dose: Not Given Ketorolac Tromethamine (Toradol) 15 mg IVPUSH ONETIME ONE Stop: 04/09/17 19:38 Last Admin: 04/09/17 20:02 Dose: 15 mg Mycophenolate [facility]il [facility] Admin: 04/10/17 09:59 Dose: 500 mg Nadolol (Naldol) 20 mg PO DAILY [facility] Last Admin: 04/10/17 09:56 Dose: Not Given Ondansetron HCl (Zofran) 4 mg IVPUSH ONETIME ONE Stop: 04/09/17 21:14 Last Admin: 04/09/17 21:23 Dose: 4 mg - Exam Quality Assessment: supplemental oxygen, DVT prophylaxis General: alert, oriented, cooperative, no acute distress HEENT: Pupils equal, Pupils reactive, EOMI, Mucous membr. moist/pink Neck: supple, trachea midline, no JVD Lungs: Normal respiratory effort, Decreased breath sounds, Rales Cardiovascular: Regular Rate, Regular Rhythm Abdomen: bowel sounds present, soft, no tenderness, no distension Back Exam: Normal Inspection, Full Range of Motion Extremities: no edema, normal pulses Peripheral Pulses: 2+: Radial (L), Radial (R), Posterior Tibial (L), Posterior Tibial (R), Dorsalis Pedis (L), Dorsalis Pedis (R) Skin: warm, dry, intact Wound/Incisions: healing well Neurological: no new focal deficit Psy/Mental Status: alert, normal affect, normal mood - Problem List & Annotations (1) Pneumonia SNOMED Code(s): 716182807 Code(s): J18.9 - PNEUMONIA, UNSPECIFIED ORGANISM Status: Acute Priority: High Current Visit: Yes Qualifiers: Pneumonia type: due to unspecified organism Laterality: right Lung location: middle lobe of lung Qualified Code(s): J18.1 - Lobar pneumonia, unspecified organism - Problem List Review Problem List Initiated/Reviewed/Updated: Yes - My Orders Last 24 Hours: My Active Orders 04/10/17 10:09 RT Pulmonary Rehab [RC] Click To Edit 04/10/17 10:10 Spirometry [RT Incentive Spirometry] [RC] ASDIRECTED 04/10/17 10:12 Acapella [RT Chest Physiotherapy] [RC] ASDIRECTED Azithromycin [Zithromax] 500 mg Sodium Chloride 0.9% [Normal Saline] 250 ml IV ONETIME 04/10/17 10:15 cefTRIAXone [Rocephin] 1,000 mg Sodium Chloride 0.9% [Normal Saline] 50 ml IV Q24H - Plan Plan:: 61 yo male admitted 03/09/17 for chest pain found to have pneumonia with pmh of htn, smoking, anxiety and depression. Chest pain/pneumonia: CT of chest today revealed moderately large amount of mass like opacity and dense consolidation in the right middle lobe with surrounding nodularity and ground-glass opacity most consiste with acute pneumonia. Will treat with IV Rocephin and Azithromycin Day 1. RT consulted for pulmonary toileting/accapello/spirometry. Recommend follow-up imaging after acute pneumonia has resolved. Htn: Stable will cont. home meds. Smoking: Talked again with patient today he is more in the comtimplative stage and will get info for him upon discharge. Anxiety/depression: Currently controlled cont. to assess. VTE: Lovenox/ SCD Dispo 2-3 days pending.
[2017-04-10] MEDS: cefTRIAXone 1 GM in Premix Bag 1 BAG IV SCH (12:14)
[2017-04-10] MEDS ORDERED: traZODone 50 MG Tab PO SCH (21:00)
[2017-04-11] MEDS: HYDROmorphone 1 MG/ML Syringe IVPUSH PRN ×2 (04:27→08:48)
[2017-04-11 04:54] LABS: CHLORIDE,CL 105 mmol/L (98-110); SODIUM,NA 140 mmol/L (136-146)
[2017-04-11] MEDS ORDERED: Azithromycin 250 MG Tab PO SCH (05:00)
[2017-04-11] MEDS ORDERED: Acetaminophen/oxyCODONE 325-10 MG Tab PO PRN (09:28)
[2017-04-11] MEDS ORDERED: Ketorolac 30 MG/ML SDV IVPUSH ONE (09:55)
[2017-04-11] MEDS ORDERED: guaiFENesin 600 MG Tab.ER PO SCH (10:00)
[2017-04-11] MEDS: Gemfibrozil 600 MG Tab PO SCH (10:32)
[2017-04-11] MEDS: Sertraline 100 MG Tab PO SCH (10:32)
[2017-04-11] MEDS: buPROPion 100 MG Tab PO SCH (10:32)
[2017-04-11] MEDS: Aspirin 81 MG Tab.EC PO SCH (10:32)
[2017-04-11] MEDS: Tacrolimus 1 MG Cap PO SCH ×2 (10:32→10:40)
[2017-04-11] MEDS: Mycophenolate Mofetil 250 MG Cap PO SCH (10:35)
[2017-04-11] MEDS: Enoxaparin 40 MG/0.4 ML Syringe SUBCUT SCH (10:43)
[2017-04-11] MEDS: Nicotine 14 MG/24 Hr Patch TRDERM SCH (10:47)
[2017-04-11] MEDS: cefTRIAXone 1 GM in Premix Bag 1 BAG IV SCH (12:11)
[2017-04-11 12:21] VITALS: BP 154/66
--- NOTE | 2017-04-11 15:13 | PCM.DCSUM1 ---
Discharge Summary - Hospital Course Free Text/Narrative:: Less right sided pain today. Productive cough. Not sob. Craving a cig. no other c/o HPI Initial Comments: See HPI Brief History: See HPI - Discharge Data Discharge Date: 04/11/17 Discharge Disposition: Home, Self-Care 01 Condition: Fair - Discharge Diagnosis/Problem(s) (1) HTN (hypertension) SNOMED Code(s): 31669515 ICD Code: I10 - ESSENTIAL (PRIMARY) HYPERTENSION Status: Acute (2) History of liver transplant SNOMED Code(s): 230665946 ICD Code: Z94.4 - LIVER TRANSPLANT STATUS Status: Acute (3) Splenomegaly SNOMED Code(s): 35718813 ICD Code: R16.1 - SPLENOMEGALY, NOT ELSEWHERE CLASSIFIED Status: Acute (4) Tobacco abuse SNOMED Code(s): 262047053, 577790615 ICD Code: Z72.0 - TOBACCO USE Status: Acute (5) Tobacco abuse counseling SNOMED Code(s): 759521531, 426344843, 463172005 ICD Code: Z71.6 - TOBACCO ABUSE COUNSELING Status: Acute (6) Lung mass SNOMED Code(s): 462492218 ICD Code: R91.8 - OTHER NONSPECIFIC ABNORMAL FINDING OF LUNG FIELD Status: Acute (7) Pneumonia SNOMED Code(s): 858698552 ICD Code: J18.9 - PNEUMONIA, UNSPECIFIED ORGANISM Status: Acute Priority : High Qualifiers: Pneumonia type: due to unspecified organism Laterality: right Lung location: middle lobe of lung Qualified Code(s): J18.1 - Lobar pneumonia, unspecified organism - Patient Summary/Data Recommended Follow-up Testing/Procedures: Needs to see his transplant docs at [place] next month for f/u ct chest to assess the resolution of the mass. Hospital Course: Overall stable/improved. Cultures still pending. Toradol helped pain. So sending home on ibuprofen and percocet. Doxy and cetin empirically. I discussed the possibility that the "mass" in the right middle and lower lobe is not all pneumonia but may rather be a mass that led to a pna. I stressed how important it is to get a follow up CT chest next month at the [facility]. I asked that a copy of all of his labs and radiographs be sent with him. - Patient Instructions Diet: Regular Diet as Tolerated Activity: As Tolerated Driving: Do Not Drive (do not drive while taking narcotics. ) Notify Provider of: Fever Other/Special Instructions: F/U with [facility] as scheduled for f/u ct chest to assure resolution of RML/RLL density. - Discharge Plan Prescriptions/Med Rec: oxyCODONE HCl/Acetaminophen [Percocet 10-325 mg Tablet] 1 each PO Q4HR PRN #40 tablet PRN Reason: Pain (Severe 7-10) Cefuroxime [Ceftin] 500 mg PO BID #24 tablet Doxycycline [Vibramycin] 100 mg PO BID #24 cap Ibuprofen 200 mg PO Q4H PRN #100 capsule PRN Reason: Pain guaiFENesin [Mucinex] 600 mg PO BID #30 tab.er Home Medications: Home Meds Aspirin [Lo-Dose Aspirin EC] 81 mg PO DAILY 04/09/17 [History] Gemfibrozil [Lopid] 600 mg PO DAILY 04/09/17 [History] Mycophenolate Mofetil 500 mg PO BID 04/09/17 [History] Nadolol [Corgard] 20 mg PO BEDTIME 04/09/17 [History] Sertraline [Zoloft] 200 mg PO DAILY 04/09/17 [History] Tacrolimus [Prograf] 1 mg PO BID 04/09/17 [History] buPROPion [Wellbutrin] 150 mg PO BID 04/09/17 [History] traZODone HCl [Trazodone HCl] 200 mg PO BEDTIME 04/09/17 [History] Cefuroxime [Ceftin] 500 mg PO BID #24 tablet 04/11/17 [Rx] Doxycycline [Vibramycin] 100 mg PO BID #24 cap 04/11/17 [Rx] Ibuprofen 200 mg PO Q4H PRN #100 capsule 04/11/17 [Rx] Nicotine [Habitrol] 14 mg TRDERM DAILY patch 04/11/17 [Rx] guaiFENesin [Mucinex] 600 mg PO BID #30 tab.er 04/11/17 [Rx] oxyCODONE HCl/Acetaminophen [Percocet 10-325 mg Tablet] 1 each PO Q4HR PRN #40 tablet 04/11/17 [Rx] Patient Handouts: Smoking Cessation, Tips for Success, [id number], Acetaminophen; Oxycodone tablets, Cefuroxime tablets, Ibuprofen tablets and capsules, Doxycycline tablets or capsules, Guaifenesin oral ER tablets, Nicotine skin patches, Community-Acquired Pneumonia, Adult, [id number] Forms: ED Department Discharge Referrals: PCP,None [Primary Care Provider] - (LIVER TRANSPLANT CLINIC AT [place] NEXT MONTH TO FU ON CT CHEST FINDINGS. ) - Discharge Summary/Plan Comment DC Time >30 min.: Yes - General Info Date of Service: 04/11/17 Admission Dx/Problem (Free Text: right sided chest and upper abdominal pain - Patient Data Vitals - Most Recent: Last Vital Signs Temp 36.0 C 04/11/17 12:00 Pulse 69 04/11/17 12:00 Resp 20 04/11/17 12:00 BP 154/66 H 04/11/17 12:00 Pulse Ox 91 L 04/11/17 12:00 Weight - Most Recent: 88.7 kg I&O - Last 24 hours: Intake & Output 04/11/17 04/11/17 04/11/17 06:59 14:59 22:59 Intake Total 750 400 Balance 750 400 Lab Results - Last 24 hrs: Laboratory Results - last 24 hr 04/11/17 04/11/17 Range/Units 04:20 04:20 WBC 9.55 (4.0-11.0) K/uL RBC 4.71 (4.50-5.90) M/uL Hgb 13.7 (13.0-17.0) g/dL Hct 39.5 (38.0-50.0) % MCV 83.9 (80.0-98.0) fL MCH 29.1 (27.0-32.0) pg MCHC 34.7 (31.0-37.0) g/dL RDW Std Deviation 45.7 (28.0-62.0) fl RDW Coeff of Zara 15 (11.0-15.0) % Plt Count 125 L (150-400) K/uL MPV 8.80 (7.40-12.00) fL Neut % (Auto) 79.6 (48.0-80.0) % Lymph % (Auto) 9.8 L (16.0-40.0) % Fulton % (Auto) 8.4 (0.0-15.0) % Eos % (Auto) 2.1 (0.0-7.0) % Baso % (Auto) 0.1 (0.0-1.5) % Neut # (Auto) 7.6 H (1.4-5.7) K/uL Lymph # (Auto) 0.9 (0.6-2.4) K/uL Fulton # (Auto) 0.8 (0.0-0.8) K/uL Eos # (Auto) 0.2 (0.0-0.7) K/uL Baso # (Auto) 0.0 (0.0-0.1) K/uL Nucleated RBC % 0.0 /100WBC Nucleated RBCs # 0 K/uL Sodium 140 (136-146) mmol/L Potassium 3.7 (3.5-5.1) mmol/L Chloride 105 (98-110) mmol/L Carbon Dioxide 27 (21-31) mmol/L BUN 17 (6.0-23.0) mg/dL Creatinine 1.2 (0.6-1.5) mg/dL Est Cr Clr Drug Dosing 57.57 mL/min Estimated GFR (MDRD) > 60.0 ml/min Glucose 127 H (60-110) mg/dL Calcium 8.1 L (8.8-10.8) mg/dL PAGE Results - Last 24 hrs: Microbiology 04/10/17 17:20 Gram Stain - Preliminary Sputum - Expectorated Med Orders - Current: Current Medications Discontinued Medications Acetaminophen (Tylenol) 650 mg PO Q4H PRN PRN Reason: Pain (Mild 1-3)/fever Hydrocodone Bitart/Acetaminophen (Jay 325-5 Mg) 2 tab PO Q4H PRN PRN Reason: Pain (moderate 4-6) Last Admin: 04/10/17 11:00 Dose: 2 tab Albuterol/Ipratropium (Duoneb 3.0-0.5 Mg/3 Ml) 3 ml NEB Q4HRRT PRN PRN Reason: Shortness Of Breath/wheezing Aspirin (Halfprin) 81 mg PO DAILY [facility] Last Admin: 04/11/17 10:32 Dose: 81 mg Azithromycin (Zithromax) 250 mg PO Q24H [facility] Last Admin: 04/11/17 04:26 Dose: 250 mg Bupropion HCl (Wellbutrin) 150 mg PO BID [facility] Last Admin: 04/11/17 10:32 Dose: 150 mg Enoxaparin Sodium (Lovenox) 40 mg SUBCUT DAILY [facility] Last Admin: 04/11/17 10:43 Dose: 40 mg Gemfibrozil (Lopid) 600 mg PO DAILY [facility] Last Admin: 04/11/17 10:32 Dose: 600 mg Guaifenesin (Mucinex) 600 mg PO BID [facility] Last Admin: 04/11/17 10:32 Dose: 600 mg Hydromorphone HCl (Dilaudid) 1 mg IVPUSH ONETIME ONE Stop: 04/09/17 20:40 Last Admin: 04/09/17 20:49 Dose: 1 mg Hydromorphone HCl (Dilaudid) 0.5 mg IVPUSH Q2H PRN PRN Reason: Pain (severe 7-10) Last Admin: 04/11/17 08:48 Dose: 0.5 mg Sodium Chloride (Normal Saline) 1,000 mls @ 999 mls/hr IV STAT ONE Stop: 04/09/17 20:12 Last Admin: 04/09/17 19:30 Dose: 999 mls/hr Levofloxacin/Dextrose 750 mg/ (Premix) 150 mls @ 100 mls/hr IV ONETIME ONE Stop: 04/09/17 21:56 Last Admin: 04/09/17 20:50 Dose: 100 mls/hr Sodium Chloride (Normal Saline) 250 mls @ 999 mls/hr IV ASDIRECTED [facility] Last Admin: 04/09/17 21:27 Dose: 999 mls/hr Azithromycin 500 mg/ Sodium (Chloride) 250 mls @ 250 mls/hr IV ONETIME ONE Stop: 04/10/17 11:11 Last Admin: 04/10/17 10:56 Dose: 250 mls/hr Ceftriaxone Sodium/Dextrose 1 (gm/ Premix) 50 mls @ 100 mls/hr IV Q24H [facility] Last Admin: 04/11/17 12:11 Dose: 100 mls/hr Ibuprofen (Motrin) 600 mg PO Q6H PRN PRN Reason: Pain (mild 1-3) Iopamidol (Isovue Multipack-370 (76%)) 50 ml IVPUSH ONETIME STA Stop: 04/09/17 22:34 Last Admin: 04/09/17 22:37 Dose: Not Given Ketorolac Tromethamine (Toradol) 15 mg IVPUSH ONETIME ONE Stop: 04/09/17 19:38 Last Admin: 04/09/17 20:02 Dose: 15 mg Ketorolac Tromethamine (Toradol) 30 mg IVPUSH ONETIME ONE Stop: 04/11/17 09:56 Last Admin: 04/11/17 10:31 Dose: 30 mg Mycophenolate Mofetil (Cellcept) 500 mg PO BIDAC [facility] Last Admin: 04/10/17 09:59 Dose: 500 mg Mycophenolate Mofetil (Cellcept) 500 mg PO 1000,2200 [facility] Last Admin: 04/11/17 10:35 Dose: 500 mg Nadolol (Naldol) 20 mg PO DAILY [facility] Last Admin: 04/10/17 09:56 Dose: Not Given Nadolol (Naldol) 20 mg PO 2200 [facility] Last Admin: 04/10/17 22:14 Dose: 20 mg Nicotine (Habitrol) 14 mg TRDERM DAILY [facility] Last Admin: 04/11/17 10:47 Dose: Not Given Ondansetron HCl (Zofran) 4 mg IVPUSH ONETIME ONE Stop: 04/09/17 21:14 Last Admin: 04/09/17 21:23 Dose: 4 mg Ondansetron HCl (Zofran Odt) 4 mg PO Q6H PRN PRN Reason: nausea, able to take PO Ondansetron HCl (Zofran) 4 mg IVPUSH Q6H PRN PRN Reason: Nausea/Vomiting Oxycodone/Acetaminophen (Percocet 325-10 Mg) 1 tab PO Q4H PRN PRN Reason: Pain Polyethylene Glycol (Miralax) 17 gm PO DAILY PRN PRN Reason: Constipation Promethazine HCl (Phenergan) 25 mg PO Q6H PRN PRN Reason: nausea, able to take PO Sertraline HCl (Zoloft) 200 mg PO DAILY [facility] Last Admin: 04/11/17 10:32 Dose: 200 mg Tacrolimus (Prograf) 1 mg PO BID [facility] Last Admin: 04/11/17 10:40 Dose: 1 mg Temazepam (Restoril) 15 mg PO BEDTIME PRN PRN Reason: Sleep Trazodone HCl (Trazodone) 200 mg PO BEDTIME [facility] Last Admin: 04/10/17 22:15 Dose: 200 mg - Exam General: Reports: alert, oriented, cooperative HEENT: Reports: Pupils equal, Pupils reactive Lungs: Reports: Decreased breath sounds, Crackles Cardiovascular: Reports: Regular Rate, Regular Rhythm, No Murmurs Abdomen: Reports: bowel sounds present, soft, no tenderness Extremities: Reports: no edema Skin: Reports: warm, dry Neurological: Reports: no new focal deficit *Q Meaningful Use (DIS) - VTE *Q VTE Criteria *Q: - Stroke *Q Stroke Criteria *Q: - AMI *Q AMI Criteria *Q:
== END 2017-04-11 14:10 | disposition home or self-care (01) ==
LOC: MW.ED 19:03 → MW.ICU 20:50
PROVIDERS: ADMIT Internal Medicine; ATTEND Internal Medicine
DX: I10 Essential (primary) hypertension (principal); Z94.4 Liver transplant status; R16.1 Splenomegaly, not elsewhere classified; Z72.0 Tobacco use; Z71.6 Tobacco abuse counseling; J18.1 Lobar pneumonia, unspecified organism; R91.8 Other nonspecific abnormal finding of lung field; Z79.899 Other long term (current) drug therapy; Z79.82 Long term (current) use of aspirin
CPT/HCPCS: 36415; 71020; 71260; 74176; 80048; 80053; 80305; 81001; 82150; 83605; 83690; 83735; 84100; 84484; 85025; 85610; 86140; 87040; 87070; 87205; 93005; 96361; 96365; 96366; 96367; 96375; 96376; 99285; A9270; G0378; J0456; J0696; J1170; J1650; J1885; J1956; J2405; J7040; J7050

== ENCOUNTER 2018-04-27 18:24 | Emergency (ER) | payer MEDICARE, OTHER ==
[2018-04-27] MEDS ORDERED: Ketorolac 60 MG/2 ML SDV IM ONE (19:04)
--- NOTE | 2018-04-27 19:11 | EDM.PDOC ---
ED HPI GENERAL MEDICAL PROBLEM - General Chief Complaint: Back Pain or Injury Stated Complaint: BACK AND SHOULDER PAIN Time Seen by Provider: 04/27/18 18:57 - History of Present Illness INITIAL COMMENTS - FREE TEXT/NARRATIVE: HISTORY AND PHYSICAL: History of present illness: The patient is a 62 yr old male with history of hypertension hypercholesterolemia and a successful liver transplant in 2008 was had no long- term complications from that and presents with 2 complaints; first he has had right shoulder pain on and off for a month which he states he woke up with and thought maybe he slept on it funny. He says it feels better when he raises it up over his head and there is no weakness numbness or tingling in the upper extremity. He has no weakness in the arm and says is just uncomfortable within the joint space but not necessarily within the muscles. He has not seen her provider for this. He also comes in complaining of 2 days of lower back pain which he says started when he bent over to get a hand in the kitchen. The pain is localized in the lower back and he feels like it is "deep pain". The pain does not radiate to his legs and he has no abdominal pain no flank pain no urinary complaints and no bowel or bladder disturbances. He has no neurosensory changes in his leg and says the pain is worse with position changes. He has not taken anything [id number] for either of these complaints. He has not seen her provider for any of these complaints. The patient has not had any recent trauma to his lower back such as falls and no trauma to his right upper extremity. The patient has no systemic complaints of fever chills abdominal pain vomiting or diarrhea. Review of systems: As per history of present illness and below otherwise all systems reviewed and negative. Past medical history: As per history of present illness and as reviewed below otherwise noncontributory. Surgical history: As per history of present illness and as reviewed below otherwise noncontributory. Social history: No reported history of drug or alcohol abuse. Family history: As per history of present illness and as reviewed below otherwise noncontributory. Physical exam: General: Well-developed well-nourished man who is nontoxic and moves easily in the ED. Vital signs were noted by me HEENT: Atraumatic, normocephalic, negative for conjunctival pallor or scleral icterus, mucous membranes moist, throat clear, neck supple, nontender, trachea midline. Lungs: Clear to auscultation, breath sounds equal bilaterally, chest nontender. Heart: S1S2, regular rate and rhythm no overt murmurs Abdomen: Soft, nondistended, nontender. NABS Negative for costovertebral tenderness. Pelvis: Deferred Genitourinary: Deferred. Rectal: Deferred. Extremities: Atraumatic, with full range of motion of all extremities. The legs are negative for cords or calf pain. Neurovascular unremarkable. At the right upper extremity there are no palpable bony deformitiesof the trigger point tenderness at the shoulder bursa and no muscle tenderness swelling or decreased range of motion. The patient is able to range in all directions both passively and actively and there is some discomfort with activation of the rotator cuff. There is no deficiencies throughout and there is no tenderness defects or deformities distally in the right upper extremity. Neuro: Awake, alert, oriented. Cranial nerves II through XII unremarkable. Cerebellum unremarkable. Motor and sensory unremarkable throughout. Exam nonfocal. Dorsi and plantar flexion is 5/5 inclusive of the great toe, inversion in the region of the feet is intact, patellar reflexes are +2 bilaterally Back: There are no midline step-offs tenderness defects of the thoracic or lumbar spine no SI joint tenderness and no pain with palpation of the buttocks. Diagnostics: LS-spine x-rays, right shoulder x-ray Therapeutics: Toradol Impression: Chronic right shoulder pain, lumbar back pain/strain Definitive disposition and diagnosis as appropriate pending reevaluation and review of above. Back Pain Score (Numeric/FACES): 10 Right Shoulder Pain Score (Numeric/FACES): 10 - Related Data Allergies Allergy/AdvReac Type Severity Reaction Status Date / Time No Known Allergies Allergy Verified 04/27/18 18:36 Home Meds: Home Meds Aspirin [Lo-Dose Aspirin EC] 81 mg PO DAILY 04/09/17 [History] Gemfibrozil [Lopid] 600 mg PO DAILY 04/09/17 [History] Mycophenolate Mofetil 500 mg PO BID 04/09/17 [History] Nadolol [Corgard] 20 mg PO BEDTIME 04/09/17 [History] Sertraline [Zoloft] 200 mg PO DAILY 04/09/17 [History] Tacrolimus [Prograf] 1 mg PO BID 04/09/17 [History] buPROPion [Wellbutrin] 150 mg PO BID 04/09/17 [History] traZODone HCl [Trazodone HCl] 200 mg PO BEDTIME 04/09/17 [History] Past Medical History HEENT History: Reports: Allergic Rhinitis Cardiovascular History: Reports: High Cholesterol, Hypertension Respiratory History: Reports: None, Asthma Gastrointestinal History: Reports: None, Cirrhosis Genitourinary History: Reports: None Musculoskeletal History: Reports: None Neurological History: Reports: None Psychiatric History: Reports: Anxiety, Depression Endocrine/Metabolic History: Reports: None Hematologic History: Reports: Anemia Immunologic History: Reports: None Oncologic (Cancer) History: Reports: None Dermatologic History: Reports: None - Infectious Disease History Infectious Disease History: Reports: Hepatitis C - Past Surgical History Head Surgeries/Procedures: Reports: None GI Surgical History: Reports: Cholecystectomy, Other (See Below) Other GI Surgeries/Procedures: 2009 liver transplant Male Surgical History: Reports: None Social & Family History - Family History Family Medical History: Noncontributory Cardiac: Reports: Hypertension OBGYN: Reports: Neurological: Reports: CVA Oncologic: Reports: Colon - Tobacco Use Smoking Status *Q: Current Every Day Smoker Years of Tobacco use: 45 Packs/Tins Daily: 1 - Caffeine Use Caffeine Use: Reports: Soda Other Caffeine Use: once daily - Recreational Drug Use Recreational Drug Use: No - Sexual History Sexual History: Reports: None - Living Situation & Occupation Living situation: Reports: Single Occupation: Retired ED ROS GENERAL - Review of Systems Review Of Systems: ROS reveals no pertinent complaints other than HPI. ED EXAM, GENERAL - Physical Exam Exam: See Below (see Dictation) Course - Vital Signs Last Recorded V/S: Last Vital Signs Temp 35.8 C 04/27/18 18:40 Pulse 80 04/27/18 18:40 Resp 18 04/27/18 18:40 BP 135/86 04/27/18 18:40 Pulse Ox 95 04/27/18 18:40 - Orders/Labs/Meds Orders: Active Orders 24 hr Category Date Time Status Lumbar Spine 2 or 3V [CR] Stat Exams 04/27/18 19:04 Ordered Shoulder Comp Rt [CR] Stat Exams 04/27/18 19:04 Taken Meds: Medications Discontinued Medications Generic Name Dose Route Start Last Admin Trade Name Freq PRN Reason Stop Dose Admin Ketorolac Tromethamine 60 mg 04/27/18 19:04 04/27/18 19:16 Toradol IM 04/27/18 19:05 60 mg ONETIME ONE Administration Departure - Departure Time of Disposition: :23 Disposition: Home, Self-Care 01 Condition: Good Clinical Impression: Lumbar back pain Right shoulder pain Qualifiers: Chronicity: unspecified Qualified Code(s): M25.511 - Pain in right shoulder - Discharge Information Instructions: Back Pain, Adult, [id number] Referrals: PCP,None [Primary Care Provider] - Forms: ED Department Discharge Additional Instructions: The following information is given to patients seen in the emergency department who are being discharged to home. This information is to outline your options for follow-up care. We provide all patients seen in our emergency department with a follow-up referral. The need for follow-up, as well as the timing and circumstances, are variable depending upon the specifics of your emergency department visit. If you don't have a primary care physician on staff, we will provide you with a referral. We always advise you to contact your personal physician following an emergency department visit to inform them of the circumstance of the visit and for follow-up with them and/or the need for any referrals to a consulting specialist. The emergency department will also refer you to a specialist when appropriate. This referral assures that you have the opportunity for followup care with a specialist. All of these measure are taken in an effort to provide you with optimal care, which includes your followup. Under all circumstances we always encourage you to contact your private physician who remains a resource for coordinating your care. When calling for followup care, please make the office aware that this follow-up is from your recent emergency room visit. If for any reason you are refused follow-up, please contact the [facility] emergency department at and ask to speak to the emergency department charge nurse. [facility] Specialty Care--Orthopedic clinic Professional Building [address] [place] [id number] [facility] Primary care- Internal Medicine and Family [facility] [address] [place] [id number] Use ice to areas of swelling and discomfort after activities and then switch to heat on her back. These call and follow-up with her shoulder as well as primary care or your lumbar back pain. Return to ER as needed and as discussed. Sickle medications as needed and prescribed. Please do all activities slowly and carefully and try to stretch open up all your areas of discomfort as we discussed. - My Orders Last 24 Hours: My Active Orders 04/27/18 19:04 Lumbar Spine 2 or 3V [CR] Stat Shoulder Comp Rt [CR] Stat - Assessment/Plan Last 24 Hours: My Active Orders 04/27/18 19:04 Lumbar Spine 2 or 3V [CR] Stat Shoulder Comp Rt [CR] Stat
[2018-04-27 20:33] VITALS: BP 142/82
--- NOTE | 2018-04-29 14:21 | CR ---
EXAM DATE: 04/27/18 PATIENT'S AGE: 62 Patient: SKYLAR AGUIRRE Facility: [place], [place] Site . Site : 1955 Study: XRay Spine Lumbar [id number]/[id number] 8:03:30 PM Ordering Physician: Storm Celeste Final Report: INDICATION: Back pain. TECHNIQUE: Three views lumbar spine. FINDINGS: Mild scoliosis. Surgical clips right upper abdomen. No fracture or subluxation in lumbar spine. Moderate aortic calcification. Moderate increased sclerosis in the mid and lower lumbar facet joints should be degenerative. Mild hypertrophic changes in the lumbar spine. Remainder negative Dictated by Margarito Sutton MD @ Apr 27 2018 8:17PM (Electronic Signature) Report Signed by Proxy. DENISE
--- NOTE | 2018-04-29 14:22 | CR ---
EXAM DATE: 04/27/18 PATIENT'S AGE: 62 Patient: SKYLAR AGUIRRE Facility: [place], [place] Site . Site : 1955 Study: XRay Shoulder Right [id number]/23/2018 8:06:08 PM Ordering Physician: Storm Celeste Final Report: INDICATION: Shoulder pain. TECHNIQUE: Right shoulder 3 views. FINDINGS: On the frontal view there is a subtle linear lucent focus transversing the mid humeral head. This is not seen on the other views and may be artifactual. Despite this finding, no definite fracture or dislocation is seen in the right shoulder. Minimal degenerative change in the right shoulder. Remainder negative. Dictated by Margarito Sutton MD @ Apr 27 2018 8:18PM (Electronic Signature) Report Signed by Proxy. DENISE
== END 2018-04-27 20:35 | disposition home or self-care (01) ==
LOC: MW.ED 18:24
DX: S39.012A Strain of muscle, fascia and tendon of lower back, initial encounter (principal); G89.29 Other chronic pain; M25.511 Pain in right shoulder; E78.00 Pure hypercholesterolemia, unspecified; I10 Essential (primary) hypertension; Z79.82 Long term (current) use of aspirin; F17.210 Nicotine dependence, cigarettes, uncomplicated; X58.XXXA Exposure to other specified factors, initial encounter
CPT/HCPCS: 72100; 73030; 96372; 99283; J1885

== ENCOUNTER 2025-08-23 22:24 | Emergency (ER) | payer MEDICARE, OTHER ==
[2025-08-23 22:53] LABS: BASOPHILS ABSOLUTE AUTO 0.02 K/uL (0.00-0.20); BASOPHILS PERCENT AUTO 0.2 % (0.0-1.0); EOSINOPHILS ABSOLUTE AUTO 0.02 K/uL (0.00-0.45); EOSINOPHILS PERCENT AUTO 0.2 % (0.0-6.0); IMMATURE GRAN ABSOLUTE AUTO 0.05 K/uL (0.00-0.05); IMMATURE GRAN PERCENT AUTO 0.4 % (0.0-0.4); LYMPHOCYTES ABSOLUTE AUTO 0.49 K/uL (1.00-4.80); LYMPHOCYTES PERCENT AUTO 4.2 % (24.0-44.0); MEAN PLATELET VOLUME 10.5 fL (9.4-12.4); MONOCYTES ABSOLUTE AUTO 1.55 K/uL (0.00-0.80); MONOCYTES PERCENT AUTO 13.3 % (0.0-8.0); NEUTROPHILS ABSOLUTE AUTO 9.51 K/uL (1.80-7.70); NEUTROPHILS PERCENT AUTO 81.7 % (41.0-71.0); NRBC ABSOLUTE 0.00 K/uL (0.00-0.02); NRBC PERCENT 0.0 /100WBC (0.0-0.2); RED BLOOD CELL COUNT 5.16 M/uL (4.52-5.90); WHITE BLOOD CELL COUNT,WBC 11.64 K/uL (3.9-11.3)
[2025-08-23 22:59] LABS: INR 1.09 (0.86-1.11)
[2025-08-23 23:16] LABS: A/G RATIO 0.7 (0.9-1.6); ALANINE AMINOTRANSFERASE,ALT 94.0 IU/L (14-63); ASPARTATE AMNIOTRANSFERASE,AST 72.0 IU/L (15-37); BILIRUBIN TOTAL 2.7 mg/dL (0.2-1.0); BLOOD UREA NITROGEN,BUN 114.0 mg/dL (7.0-18.0); CARBON DIOXIDE,CO2 23.7 mmol/L (21.0-32.0); CHLORIDE,CL 95.0 mmol/L (98-107); CREATININE 3.4 mg/dL (0.8-1.3); EST CRCL DRUG DOSING (CG) 18.76 mL/min; GLUCOSE RANDOM 280.0 mg/dL (74-106); POTASSIUM,K 4.6 mmol/L (3.5-5.1); PRO B-TYPE NATRIUR PEPT,BNPPRO 517.0 pg/mL (0-125); PROTEIN TOTAL,TP 7.1 g/dL (6.4-8.2); SODIUM,NA 130.0 mmol/L (136-148); TSH ULTRASENSITIVE 0.42 uIU/mL (0.36-3.74)
[2025-08-23 23:17] LABS: ESTIMATED GFR 19.0 mL/min (>60)
[2025-08-23 23:48] LABS: PLATELET COUNT,PLT 139
[2025-08-24] MEDS: cefTRIAXone 1 GM in Water For Injection, Sterile 10 ML IVPUSH ONE (00:52)
[2025-08-24 01:16] LABS: GLUCOSE,URINE 250 mg/dL (NEGATIVE); OCCULT BLOOD,URINE MODERATE (NEGATIVE)
[2025-08-24 01:22] LABS: APPEARANCE,URINE HAZY
[2025-08-24 01:28] LABS: EPITHELIAL CELLS,URINE RARE (NONE-FEW)
[2025-08-24] MEDS: Lactated Ringers 1,000 ML IV SCH (03:39)
[2025-08-24] MEDS: fentaNYL 50 MCG/ML SDV IVPUSH ONE (03:40)
[2025-08-24 04:43] VITALS: BP 113/48; PULSE 94
== END 2025-08-24 05:50 ==
LOC: MW.ED 22:24
DX: J18.9 Pneumonia, unspecified organism (principal); M86.8X7 Other osteomyelitis, ankle and foot; L03.116 Cellulitis of left lower limb; E11.9 Type 2 diabetes mellitus without complications; N17.9 Acute kidney failure, unspecified; I10 Essential (primary) hypertension; E78.00 Pure hypercholesterolemia, unspecified; J45.909 Unspecified asthma, uncomplicated; R74.8 Abnormal levels of other serum enzymes; R79.89 Other specified abnormal findings of blood chemistry; Z79.82 Long term (current) use of aspirin; Z79.84 Long term (current) use of oral hypoglycemic drugs; Z79.4 Long term (current) use of insulin
CPT/HCPCS: 36415; 70450; 71045; 71250; 72125; 73630; 74176; 76705; 80053; 81001; 82140; 83605; 83690; 83880; 84443; 84484; 85025; 85610; 85652; 86140; 87040; 87154; 93005; 96361; 96365; 96367; 96375; 99285; J0456; J0696; J2543; J3010; J7030; J7050; J7120; 87077; 87186; 93010